=== PATIENT | female | born 1985 ===

== ENCOUNTER 2018-06-22 06:03 | Emergency (ER) | payer OTHER ==
--- NOTE | 2018-06-22 06:15 | C.PDOC ---
Addendum entered and electronically signed by Jose Alfredo Thomas 06/22/18 10:12: Addendum Addendum: 06/22/18 10:10 Thyroid hormones improved. No indication of thyroid storm here in ED. Likely hyperthyroid, but improved and not clinically significant to warrant admission or observation. Reassessed. No airway swelling or angioedema. No urticaria or Rash. Well appearing in NAD. PT notes massive improvement as well and states she feels she is feeling good to go home. Given return indications, followup and med script for allergic rx. Will d/c home. Addendum entered and electronically signed by Jose Alfredo Thomas 06/22/18 07:10: Addendum Addendum: 06/22/18 07:09 33 yr old female p/w allergic reaction, palpitations, pt dx with hyperthyroid 3w prior and on methimazole. Pending re-eval @ 10 s/p solumedrol Original Note: History Of Present Illness Patient comes in complaining of itchiness and hives, which happened last night. Patient received a shot of solumedrol IM last night. States she woke up this morning with some palpitations and the hives recurred, with diffused itching. Patient is speaking complete sentences. Tolerating own secretions. pt is on methimazole for her hyperthyroidism, and was also started on propanolol about 3 weeks ago Time Seen by Provider: 06/22/18 06:15 Chief Complaint (Nursing): Palpitations History Per: Patient History/Exam Limitations: no limitations Onset/Duration Of Symptoms: Hrs Current Symptoms Are (Timing): Still Present Context: Other Possible Cause: Medication Associated Symptoms: Skin Rash, Itching Home/EMS Treatment: Steroids Severity: Moderate Pain Scale Rating Of: 0 Recent travel outside of the [place]: No Additional History Per: Patient Past Medical History Reviewed: Historical Data, Nursing Documentation, Vital Signs Vital Signs: Last Vital Signs Temp 98.2 F 06/22/18 06:04 Pulse 105 H 06/22/18 06:04 Resp 14 06/22/18 06:04 BP 131/89 06/22/18 06:04 Pulse Ox 99 06/22/18 06:04 - Medical History PMH: Hyperthyroidism Surgical History: Appendectomy Family History: States: No Known Family Hx - Social History Hx Alcohol Use: Yes Hx Substance Use: No - Immunization History Hx Tetanus Toxoid Vaccination: No Hx Influenza Vaccination: No Hx Pneumococcal Vaccination: No Review Of Systems Constitutional: Negative for: Fever, Chills ENT: Negative for: Throat Swelling Cardiovascular: Positive for: Palpitations (gone now) Respiratory: Negative for: Shortness of Breath Gastrointestinal: Negative for: Nausea, Vomiting, Diarrhea Skin: Positive for: Rash (hives) Psych: Negative for: Anxiety Physical Exam - Physical Exam Appears: Non-toxic, No Acute Distress Skin: Warm, Dry, Rash (Diffused, urticarial) Head: Normacephalic Eye(s): bilateral: Normal Inspection Oral Mucosa: Moist Tongue: No Swelling Lips: Normal Appearing Throat: No Erythema, No Drooling Neck: Supple Cardiovascular: Rhythm Regular Respiratory: No Rales, No Rhonchi, No Wheezing Gastrointestinal/Abdominal: Soft, No Tenderness Back: Normal Inspection Extremity: Normal ROM Neurological/Psych: Oriented x3 Gait: Steady ED Course And Treatment O2 Sat by Pulse Oximetry: 99 (RA) Pulse Ox Interpretation: Normal Progress Note: Labs and urinalysis ordered. Benadryl, Pepcid, IV fluids, and solumedrol administered. Disposition Counseled Patient/Family Regarding: Studies Performed, Diagnosis - Disposition Disposition Time: 06:15 Condition: FAIR Forms: [employer] (Nepalese) - Clinical Impression Clinical Impression: Allergic reaction - Scribe Statement The provider has reviewed the documentation as recorded by the Pinky Amaya Provider Attestation: All medical record entries made by the Scribe were at my direction and personally dictated by me. I have reviewed the chart and agree that the record accurately reflects my personal performance of the history, physical exam, medical decision making, and the department course for this patient. I have also personally directed, reviewed, and agree with the discharge instructions and disposition. Physician Patient Turnover Patient Signed Over To: Jose Alfredo Thomas Handoff Comments: pending re-eval and dispo
[2018-06-22] MEDS ORDERED: Sodium Chloride 0.9% 1,000 ML IV ONE (06:19)
[2018-06-22] MEDS ORDERED: DiphenhydrAMINE 50 mg/ml Inj IVP STA (06:19)
[2018-06-22 06:40] LABS: BASO % 0.3 % (0.0-2.0); HEMOGLOBIN 11.2 g/dL (11.0-16.0); LYMPH # 0.8 K/uL (1.0-4.3); LYMPH % 7.6 % (20.0-40.0); MEAN CELL VOLUME 87.4 fL (81.0-99.0); MEAN CORPUSCULAR HEMOGLOBIN 29.3 pg (27.0-31.0); MEAN CORPUSCULAR HGB CONC 33.5 g/dL (33.0-37.0); MEAN PLATELET VOLUME 8.6 fL (7.2-11.7); MONO # 0.5 K/uL (0.0-0.8); MONO % 4.3 % (0.0-10.0); NEUT # 9.5 K/uL (1.8-7.0); NEUT % 87.8 % (50.0-75.0); PLATELET COUNT 248 K/uL (130-400); RBC 3.83 Mil/uL (3.80-5.20); RED CELL DISTRIBUTION WIDTH 13.4 % (11.5-14.5); WHITE BLOOD COUNT 10.8 K/uL (4.8-10.8)
[2018-06-22 06:57] LABS: BLOOD UREA NITROGEN 10 mg/dL (7-17); CALCIUM 9.4 mg/dl (8.6-10.4); GFR NON-AFRICAN AMERICAN > 60
[2018-06-22 08:43] LABS: BANDS 1 % (0-2); LYMPHOCYTE 11 % (20-40); MONOCYTE 5 % (0-10); NEUTROPHIL 83 % (50-75); PLATELET ESTIMATE NORMAL (NORMAL); TOTAL CELLS COUNTED 100
[2018-06-22 09:10] LABS: HCG,QUALITATIVE URINE NEGATIVE (NEGATIVE)
[2018-06-22 09:16] LABS: SQUAMOUS EPITHIAL < 1 /hpf (0-5); URINE BACTERIA RARE (<OCC); URINE BILIRUBIN NEGATIVE (NEGATIVE); URINE BLOOD NEGATIVE (NEGATIVE); URINE CLARITY Clear (Clear); URINE COLOR Straw (YELLOW); URINE GLUCOSE (UA) NORMAL (Normal); URINE LEUKOCYTE ESTERASE NEG Leu/uL (Negative); URINE PROTEIN NEGATIVE (NEGATIVE); URINE UROBILINOGEN NORMAL mg/dL (0.2-1.0)
[2018-06-22 09:39] LABS: T4 9.61 ug/dL (5.5-11.0)
[2018-06-22 09:57] LABS: T3 1.29 nmol/L (1.49-2.60)
[2018-06-22 10:32] VITALS: BP 120/79; PULSE 90; RESP 16; TEMP 98.4; O2SAT 98
== END 2018-06-22 10:31 | disposition home or self-care (01) ==
LOC: C.ER 06:03
DX: T78.40XA Allergy, unspecified, initial encounter (principal); X58.XXXA Exposure to other specified factors, initial encounter
CPT/HCPCS: 80048; 81001; 84439; 84443; 84480; 84703; 85025; 96361; 96374; 96375; 99285; J1200; J2930; J7030